=== PATIENT | female | born 1960 | race Caucasian/White ===

== ENCOUNTER → 2018-03-28 | Outpatient (CLI) | payer OTHER ==
[2018-03-28 09:50] LABS: Appearance,Urine Clear (Clear); Bilirubin,Urine Negative (Negative); Blood,Urine Negative (Negative); Color,Urine Yellow; Glucose,Urine (UA) Negative (Negative); Ketones,Urine Negative (Negative); Leukocyte Esterase,Urine Negative (Negative); Nitrite,Urine Negative (Negative); PH, Urine 6.5 (5.0-8.0); Protein,Urine Negative (Negative); Specific Gravity,Urine 1.009 (1.001-1.035); Urobilinogen,Urine <2.0 mg/dL (<2.0)
[2018-03-28 09:57] LABS: HCT 44.8 % (34.0-46.0); HGB 14.5 gm/dL (11.4-16.0); MCH 28.7 pg (25.0-35.0); MCHC 32.4 g/dL (31.0-37.0); MCV 88.6 fL (80.0-100.0); Mean Platelet Volume 6.8; Platelet Count 377 k/uL (150-450); RBC 5.06 m/uL (3.80-5.40); RDW 12.5 % (11.5-15.5); WBC 6.1 k/uL (3.8-10.6)
[2018-03-28 16:59] LABS: ALT 20 U/L (8-44); AST 26 U/L (13-35); Albumin/Globulin Ratio 2.35 (1.20-2.10); Alkaline Phosphatase 78 U/L (41-126); Calcium 10.1 mg/dL (8.7-10.3); Chloride 105 mmol/L (96-109); Cholesterol 225 mg/dL (0-200); Glucose 82 mg/dL (70-110); Potassium 4.6 mmol/L (3.5-5.5); Sodium 141 mmol/L (135-145); Total Bilirubin 0.6 mg/dL (0.3-1.2); Total Protein 6.7 g/dL (6.2-8.2); Triglycerides <50.0 mg/dL (0.0-149.0); VLDL Calculation 9.98 mg/dL (5.00-40.00)
== END | disposition home or self-care (01) ==
LOC: LABWHC1 09:13
PROVIDERS: ATTEND Family Medicine
DX: Z00.00 Encounter for general adult medical examination without abnormal findings (principal); Z13.9 Encounter for screening, unspecified
CPT/HCPCS: 36415; 80053; 80061; 81003; 85027; 86803

== ENCOUNTER → 2018-05-04 | Outpatient (CLI) | payer OTHER ==
--- NOTE | 2018-05-06 11:03 | MM ---
Reason for exam: screening (asymptomatic). Last mammogram was performed 13 years ago. History: Patient history of endometrial cancer. Excisional biopsy of the left breast, 2004. Physical Findings: A clinical breast exam by your physician is recommended on an annual basis and results should be correlated with mammographic findings. MG 3D Screening Mammo W/Cad Bilateral CC and MLO view(s) were taken. Prior study comparison: May 10, 2005, CAD bilateral diagnostic mammogram. April 19, 2004, bilateral diagnostic mammogram. The breast tissue is heterogeneously dense. This may lower the sensitivity of mammography. Diffuse round and punctate calcifications bilaterally. A small group at 12 o'clock on the left. ASSESSMENT: Incomplete: need additional imaging evaluation, BI-RAD 0 RECOMMENDATION: Special view mammogram of the left breast. [facility] will attempt to contact patient to return for supplemental views.
== END ==
LOC: RADMAMWWP 16:24
PROVIDERS: ATTEND Family Medicine
DX: Z12.31 Encounter for screening mammogram for malignant neoplasm of breast (principal)
CPT/HCPCS: 77063; 77067

== ENCOUNTER → 2018-06-03 | Outpatient (CLI) | payer OTHER ==
--- NOTE | 2018-06-05 09:39 | MM ---
Reason for exam: additional evaluation requested from prior study. Last mammogram was performed 1 month ago. History: Patient has history of endometrial cancer at age 26. Excisional biopsy of the left breast, 2004. Physical Findings: Nurse did not find any significant physical abnormalities on exam. MG Work Up Mamm w CAD LT CC with magnification, MLO with magnification, and LM view(s) were taken of the left breast. Prior study comparison: May 04, 2018, bilateral MG 3d screening mammo w/cad. May 10, 2005, CAD bilateral diagnostic mammogram. The breast tissue is extremely dense which could obscure a lesion on mammography. There is a grouped indeterminate fine calcifications in the left breast outer middle position approximately 4 cm from the nipple. A second group is in the anterior left breast. These findings are changed when compared to 2018. These results were verbally communicated with the patient and result sheet given to the patient on 06/03/18. ASSESSMENT: Suspicious, BI-RAD 4 RECOMMENDATION: Surgical consultation. Breast MRI of the left breast. Called Dr. Jeong with mammographic findings and has scheduled an appointment for the patient for 06/19/18 at 3:[address] Jameson for consultation only. PRELIMINARY REPORT CALLED AND FAXED TO DR. JAMESON ON 06/03/18.
== END ==
LOC: RADMAMWWP 14:41
PROVIDERS: ATTEND Family Medicine
DX: R92.8 Other abnormal and inconclusive findings on diagnostic imaging of breast (principal)
CPT/HCPCS: 77065

== ENCOUNTER → 2018-06-19 | Outpatient (CLI) | payer OTHER ==
[2018-06-19 15:12] VITALS: BP 117/62; PULSE 64; RESP 18; TEMP 97.5; BMI 27.6
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
== END ==
LOC: WWCWWP 14:49
PROVIDERS: ATTEND Surgery
DX: Z53.9 Procedure and treatment not carried out, unspecified reason (principal)

== ENCOUNTER → 2018-07-10 | Day surgery (SDC) | payer OTHER ==
[2018-07-10 07:26] VITALS: RESP 16; BMI 27.1
[2018-07-10 09:51] VITALS: BP 132/76; PULSE 71; TEMP 97.6
--- NOTE | 2018-07-10 09:54 | P.OP ---
Date of Procedure: 07/10/18 Preoperative Diagnosis: Mammographic abnormality of 2 sites in the left breast, microcalcifications Postoperative Diagnosis: Same Procedure(s) Performed: Stereotactic core biopsy of 2 sites in the left breast Anesthesia: local Surgeon: Carmen Jameson Estimated Blood Loss (ml): 1 Pathology: other (breast tissue) Condition: stable Disposition: same day Indications for Procedure: Deirdre Swift is a 57-year-old white female who underwent a mammogram after which it was recommended that additional views be obtained of the left breast. This was done [id number]. On this mammogram 2 areas of microcalcification of concern were identified. The first was in the outer mid position 4 cm from the nipple and the second group was in the anterior left breast. The patient had risks and benefits of surgery take a core biopsy discussed with her and she wished to proceed. The patient was taken to the stereotactic core room and positioned on the lower lid table. The more lateral faint group of calcifications were approached initially. The approach was a CC from above. The area of concern was identified in conjunction with radiology although it was very hard to see the microcalcifications. Following the trimmer meat film stereo pair was obtained. The area was targeted. The breast was prepped with Betadine. 10 mL of 1% lidocaine were used to anesthetize the area. The needle was driven to the correct coordinates. Pre-and post-fire films were obtained. This appeared to be in the correct location. Proximally 12 samples were obtained using a 9- gauge vacuum-assisted cutting rotating core biopsy needle. Radiograph of the specimen did not show well the area of calcification. A secure marked top Marker was left. It was discussed with the patient that we were uncertain as to whether we had actually obtain the microcalcifications and it may be necessary to do a needle local excisional biopsy depending on results from pathology. A second area of microcalcifications were more easily targeted. Again a CC from above approach was utilized. The lesion was noted on trimmer meat film. Stereo. Was then obtained. The breast was prepped using Betadine. 15 mL of 1% lidocaine was used to anesthetize the skin and breast tissue. Was driven to the correct coordinates and pre-and post-fire films were obtained. A 9-gauge vacuum-assisted rotating cutting core biopsy needle was utilized to obtain approximately 9 specimens. Radiographic the specimen did reveal the microcalcifications. The patient tolerated the procedure in stable condition. Both specimens were sent for pathologic evaluation. A 6 try marked marker was used to darlene the second area. This was the more medial area. Patient tolerated procedure in stable condition. The more lateral lesion was questionably adequately sampled and depending on pathology it may be recommended she undergo a needle local excisional biopsy. The area could not be better demonstrated on additional radiographic views stereotactically. The more medial area was felt to be adequately sampled and the specimen was sent for pathologic evaluation as well. The patient will follow up next week with Dr. Jesus Posey.
--- NOTE | 2018-07-10 17:57 | MM ---
EXAMINATION TYPE: MG stereo VAD BX addl LT DATE OF EXAM: 07/10/2018 COMPARISON: 06/03/2018 mammogram, 05/04/2018 mammogram CLINICAL HISTORY: Abnormal mammogram, calcifications 2 sites TECHNIQUE: Stereotactic guided core biopsy of left breast. FINDINGS: The procedure was performed by surgery. Targeting was provided by radiology. There is difficulty with the very faint calcifications for the first biopsy site. A valid target appear to be acquired. This was discussed with surgeon. Confirmation with sample and clip placement will be performed. First site: Specimen obtained has no calcifications. Clip placement appears shallow to the calcifications. Post procedure mammogram was discussed with the referring surgeon. Wire localization of these calcifications may be required due to the very faint appearance on the stereotactic imaging. Second site: Second site specimen demonstrates calcifications. Post procedure mammogram: Post procedure mammogram was obtained. The Barbell marker is the shallow marker in the region but not at the calcifications, biopsy site 1. The top hat stock laminating machine operator is at the biopsy site of the calcifications, biopsy site 2. Wire localization from a craniocaudal approach is recommended for site 1 calcifications. IMPRESSION: 1. Unsuccessful stereotactic core biopsy upper outer middle left breast calcifications. 2. Successful stereotactic core biopsy calcifications anterior left breast. Recommendations: 1. Wire localization upper outer quadrant calcifications. 2. Additional recommendations are pending pathology results. Pathology Results: Benign A. LEFT BREAST, SITE A LATERAL, STEREOTACTIC CORE BIOPSY: Benign breast with prominent adipose tissue and fibrocystic changes including fibroadenomatoid hyperplasia, fibrosis and adenosis with rare microcalcifications. See note. B. LEFT BREAST, SITE B ANTERIOR, STEREOTACTIC CORE BIOPSY: Proliferative fibrocystic changes including moderate usual type ductal hyperplasia, sclerosing adenosis with associated calcifications, fibrosis, cysts, columnar cell change and apocrine metaplasia. Recommendation Follow up mammogram of the left breast in 6 months. EMERY
== END ==
LOC: RADMAMWWP 06:59
PROVIDERS: ATTEND Surgery
DX: N60.32 Fibrosclerosis of left breast (principal); N60.22 Fibroadenosis of left breast; N62 Hypertrophy of breast; O28.4 Abnormal radiological finding on antenatal screening of mother; N60.12 Diffuse cystic mastopathy of left breast
CPT/HCPCS: 88305; 19081; 19082; A4648; J2001

== ENCOUNTER → 2018-07-17 | Outpatient (CLI) | payer OTHER ==
[2018-07-17 10:57] VITALS: BP 117/56; PULSE 68; RESP 16; TEMP 96.1; BMI 27.3
--- NOTE | 2018-07-17 11:28 | P.PN ---
Subjective Progress Note Date: 07/17/18 This is a 57-year-old white female who is status post stereotactic core biopsy of 2 areas of concern in the left breast and 220 219. The first area was more lateral and the pathology is benign however there are minimal microcalcifications noted in the specimen. I reviewed this with the radiologist and he is concerned that we have actually adequately sampled the lateral group of microcalcifications. He was therefore recommended a needle localization and excisional biopsy of this area. The more anterior calcifications are felt to be adequately sampled and these also are benign revealing proliferative fibrocystic change including moderate usual type ductal hyperplasia, sclerosing adenosis and associated calcifications. Patient at the time of the stereotactic biopsy procedure did have pain with the second biopsy. The patient does not want to attempt another stereo biopsy. Postprocedure she has some mild ecchymosis and small hematoma formation at the site of the biopsies. The patient is very reluctant to undergo any further procedures at this time and is climbing needle localization and excisional biopsy. Of concern is the fact that the patient had endometrial cancer at the age of 26. Objective - Vital Signs Vital signs: Vital Signs Temp 96.1 F L 07/17/18 10:53 Pulse 68 07/17/18 10:53 Resp 16 07/17/18 10:53 BP 117/56 07/17/18 10:53 Pulse Ox 99 07/17/18 10:53 Intake & Output 07/16/18 07/17/18 07/17/18 18:59 06:59 18:59 Weight 63.503 kg - Exam BMI 27.3 - Constitutional General appearance: Present: average body habitus - EENT Eyes: Present: EOMI ENT: Present: hearing grossly normal - Neck Neck: Present: normal ROM - Respiratory Respiratory: bilateral: CTA - Cardiovascular Rhythm: regular Heart sounds: normal: S1, S2 - Musculoskeletal Musculoskeletal: Present: gait normal, generalized weakness - Psychiatric Psychiatric: Present: A&O x's 3, appropriate affect, intact judgment & insight - Additional findings Additional findings: Breast examination: Left breast mild ecchymosis with small hematoma at the core biopsy site no evidence of any infection Assessment and Plan Assessment: Impression: 1. Patient comes in status post stereotactic core biopsy the lateral biopsy site is felt to be in adequate sampling of the area of concern 2. Both biopsy sites were benign 3. Right knee pain 4. Migraine headaches 5. Endometrial cancer at 26 Plan: 1. Recommendation is for needle localization and excisional biopsy of lateral hypocalcification site 2. Medical management of medical conditions 3. At this time the patient is declining any further interventional biopsy. She has agreed to a repeat left breast mammogram in 3 months time with physician exam at that time. She and her understand that this could represent a malignancy and bleeding could be dangerous to her health. Despite this she is declining any further biopsy rather stereotactic or open. We will therefore do a left breast mammogram and physician appointment in 3 months time. cc: Dr. Jeong
== END ==
LOC: WWCWWP 10:39
PROVIDERS: ATTEND Surgery
DX: Z53.9 Procedure and treatment not carried out, unspecified reason (principal)

== ENCOUNTER → 2018-11-02 | Outpatient (CLI) | payer OTHER ==
--- NOTE | 2018-11-03 08:34 | MM ---
Reason for exam: follow-up at short interval from prior study. Last mammogram was performed 5 months ago. History: Patient is postmenopausal and has history of endometrial cancer at age 26. Benign MG stereo VAD BX addl LT of the left breast, July 10, 2018. Benign MG stereo VAD BX LT of the left breast, July 10, 2018. Excisional biopsy of the left breast, 2005. Physical Findings: Nurse did not find any significant physical abnormalities on exam. MG Diagnostic Mammo LT w CAD CC, MLO, and XCCL view(s) were taken of the left breast. Prior study comparison: June 03, 2018, left breast MG work up mamm w CAD LT. May 04, 2018, bilateral MG 3d screening mammo w/cad. The breast tissue is heterogeneously dense. This may lower the sensitivity of mammography. Previous mammotome biopsy in the left breast x 2. Benign oil cysts. Asymmetric density associated with the lateral superior clip becomes less defined on conventional CC view. 6 month precautionary follow up recommended. These results were verbally communicated with the patient and result sheet given to the patient on 11/02/18. ASSESSMENT: Probably benign, BI-RAD 3 RECOMMENDATION: Follow-up diagnostic mammogram of both breasts in 6 months.
== END | disposition home or self-care (01) ==
LOC: RADMAMWWP 15:36
PROVIDERS: ATTEND Surgery
DX: R92.8 Other abnormal and inconclusive findings on diagnostic imaging of breast (principal)
CPT/HCPCS: 77065

== ENCOUNTER → 2020-07-11 | Outpatient (CLI) | payer OTHER ==
--- NOTE | 2020-07-13 14:22 | MM ---
Reason for exam: screening (asymptomatic). Last mammogram was performed 1 year and 8 months ago. History: Patient is postmenopausal and has history of endometrial cancer at age 26. Benign MG stereo VAD BX addl LT of the left breast, July 10, 2018. Benign MG stereo VAD BX LT of the left breast, July 10, 2018. Excisional biopsy of the left breast, 2005. Physical Findings: A clinical breast exam by your physician is recommended on an annual basis and results should be correlated with mammographic findings. MG 3D Screening Mammo W/Cad Bilateral CC and MLO view(s) were taken. Prior study comparison: November 02, 2018, left breast MG diagnostic mammo LT w CAD. June 03, 2018, left breast MG work up mamm w CAD LT. The breast tissue is heterogeneously dense. This may lower the sensitivity of mammography. Previous mammotome biopsy in the left breast. Stable scattered punctate and oil cyst calcifications. No significant changes when compared with prior studies. ASSESSMENT: Benign, BI-RAD 2 RECOMMENDATION: Routine screening mammogram of both breasts in 1 year.
== END | disposition home or self-care (01) ==
LOC: RADMAMWWP 16:21
PROVIDERS: ATTEND Family Medicine
DX: Z12.31 Encounter for screening mammogram for malignant neoplasm of breast (principal)
CPT/HCPCS: 77063; 77067

== ENCOUNTER → 2021-07-24 | Outpatient (CLI) | payer OTHER ==
--- NOTE | 2021-07-25 12:34 | MM ---
Reason for exam: screening (asymptomatic). Last mammogram was performed 1 year ago. History: Patient is postmenopausal and has history of endometrial cancer at age 26. Benign MG stereo VAD BX addl LT of the left breast, July 10, 2018. Benign MG stereo VAD BX LT of the left breast, July 10, 2018. Excisional biopsy of the left breast, 2005. Physical Findings: A clinical breast exam by your physician is recommended on an annual basis and results should be correlated with mammographic findings. MG Screening Mammo w CAD Bilateral CC and MLO view(s) were taken. Prior study comparison: July 11, 2020, bilateral MG 3d screening mammo w/cad. November 02, 2018, left breast MG diagnostic mammo LT w CAD. The breast tissue is heterogeneously dense. This may lower the sensitivity of mammography. Previous mammotome biopsy in the left breast x 2. Small benign oil cyst calcifications bilaterally. No significant changes when compared with prior studies. ASSESSMENT: Benign, BI-RAD 2 RECOMMENDATION: Routine screening mammogram of both breasts in 1 year. Patient should continue monthly self breast exams. A negative report should not preclude additional follow up of suspicious palpable abnormalities.
== END | disposition home or self-care (01) ==
LOC: RADMAMWWP 07:05
PROVIDERS: ATTEND Family Medicine
DX: Z12.31 Encounter for screening mammogram for malignant neoplasm of breast (principal); Z78.0 Asymptomatic menopausal state
CPT/HCPCS: 77067

== ENCOUNTER → 2024-06-05 | Outpatient (CLI) | payer OTHER ==
[2024-06-05 13:02] LABS: ALT 16 U/L (8-44); AST 17 U/L (13-35); Albumin 4.5 g/dL (3.8-4.9); Albumin/Globulin Ratio 2.05 Ratio (1.60-3.17); Alkaline Phosphatase 101 U/L (41-126); BUN/Creat Ratio 23.75 Ratio (12.00-20.00); Calcium 9.5 mg/dL (8.7-10.3); Carbon Dioxide 27.3 mmol/L (21.6-31.8); Chloride 104 mmol/L (96-109); Chol/HDL Ratio 4.05 Ratio; Globulin 2.2 g/dL (1.6-3.3); Glucose 95 mg/dL (70-110); LDL Cholesterol,Calculated 175.7 mg/dL (0.0-131.0); Potassium 4.4 mmol/L (3.5-5.5); Sodium 139 mmol/L (135-145); Total Bilirubin 0.3 mg/dL (0.3-1.2); Total Protein 6.7 g/dL (6.2-8.2); VLDL Calculation 11.84 mg/dL (5.00-40.00)
[2024-06-05 13:08] LABS: HCT 44.7 % (37.2-46.3); HGB 14.4 g/dL (12.0-15.0); MCH 28.3 pg (27.0-32.0); MCHC 32.2 g/dL (32.0-37.0); Mean Platelet Volume 10.1 FL (9.5-12.2); NRBC Per 100 WBC 0 X 10*3/uL (0.00-0.01); Platelet Count 375 X 10*3/uL (140-440); RBC 5.08 X 10*6/uL (4.10-5.20); WBC 6.37 X 10*3/uL (4.50-10.00)
== END | disposition home or self-care (01) ==
LOC: LABWHC1 08:24
PROVIDERS: ATTEND Family Medicine
DX: Z00.00 Encounter for general adult medical examination without abnormal findings (principal)
CPT/HCPCS: 36415; 80053; 80061; 85027

== ENCOUNTER → 2024-07-26 | Outpatient (CLI) | payer OTHER ==
--- NOTE | 2024-07-26 07:58 | MM ---
Reason for Exam: Screening (asymptomatic). Last mammogram was performed 2 year(s) and 0 month(s) ago. Patient History: Menarche at age 18. First Full-Term at age 24. Hysterectomy at age 29. Postmenopausal. Patient has history of breast feeding. Endometrial cancer, age 26. 2005, Excisional Biopsy on the Left side. 07/10/2018, Benign Core Biopsy on the left side. 07/10/2018, Benign Core Biopsy on the left side. Risk Values: Heather 5 year model risk: 1.8%. NCI Lifetime model risk: 8.7%. Prior Study Comparison: 07/11/2020 Bilateral Screening Mammogram, [facility]. 07/24/2021 Bilateral Screening Mammogram, [facility]. 07/25/2022 Bilateral MG screening mammo w CAD, [facility]. Tissue Density: The breasts are heterogeneously dense, which may obscure small masses. Findings: Analyzed By CAD. There is no suspicious group of microcalcifications or new suspicious mass in either breast. Previously sampled nodule left breast unchanged. Overall Assessment: Benign, BI-RAD 2 Management: Screening Mammogram of both breasts in 1 year. . Patient should continue monthly self-breast exams. A clinical breast exam by your physician is recommended on an annual basis. This exam should not preclude additional follow-up of suspicious palpable abnormalities. Note on Heather scores and lifetime risk: 1. A Heather score greater than 3% is considered moderate risk. If this is the case, consider specialist referral to assess eligibility for a risk reducing agent. 2. If overall lifetime risk for the development of breast cancer is 20% or higher, the patient may qualify for future screening with alternating mammogram and breast MRI. [facility], , 07/26/2024 7:55 AM. Electronically signed and approved by: Jun George M.D. Radiologis
== END | disposition home or self-care (01) ==
LOC: RADMAMWWP 06:57
PROVIDERS: ATTEND Family Medicine
DX: Z12.31 Encounter for screening mammogram for malignant neoplasm of breast (principal); R92.333 Mammographic heterogeneous density, bilateral breasts; Z78.0 Asymptomatic menopausal state
CPT/HCPCS: 77067

== ENCOUNTER 2024-08-17 08:54 | Day surgery (SDC) | payer OTHER ==
[~2024-08-17 08:54] MED LIST: LIDOCAINE 1% (10MG/ML) FOR IV START INTRADERMA PRN
[2024-08-17] MEDS: IV FLUID CONTINUATION 1,000 ML IV ONE (09:13)
[2024-08-17 09:26] VITALS: TEMP 97.7
[2024-08-17] MEDS: LACTATED RINGERS 1,000 ML IV SCH (09:27)
[2024-08-17] MEDS ORDERED: LIDOCAINE 1% INJ 10MG/ML (20 ML MDV) ONE (10:19)
[2024-08-17] MEDS ORDERED: PROPOFOL 10 MG/ML 20 ML VIAL IV ONE (10:19)
--- NOTE | 2024-08-17 10:39 | P.PCN ---
Date of Procedure: 08/17/24 Procedure(s) Performed: BRIEF HISTORY: Patient is a 63-year-old pleasant white female scheduled for an elective colonoscopy as a part of screening for colon cancer. PROCEDURE PERFORMED: Colonoscopy. PREOPERATIVE DIAGNOSIS: Screening for colon cancer. IV sedation per Anesthesia. PROCEDURE: After informed consent was obtained, the patient, was brought into the endoscopy unit. IV sedation was administered by Anesthesia under continuous monitoring. Digital rectal examination was normal. Initially the Olympus CF-160 flexible video colonoscope was then inserted in the rectum, gradually advanced into the cecum without any difficulty. Careful examination was performed as the scope was gradually being withdrawn. Ileocecal valve and the appendiceal orifice were visualized and appeared normal. Prep was excellent. Mucosa of the cecum, ascending colon, transverse colon, descending colon, sigmoid colon, and rectum appeared normal. Retroflexion was performed in the rectum and small internal hemorrhoids were seen. The patient tolerated the procedure well. IMPRESSION: Normal-appearing colon from rectum to cecum with no evidence of colorectal neoplasia. Small internal hemorrhoids. RECOMMENDATIONS: Findings of this examination were discussed with the patient as well as the family.. She was advised to have repeat screening colonoscopy in 10 years.
[2024-08-17 11:08] VITALS: BP 111/69; PULSE 67; RESP 18
== END 2024-08-17 11:20 | disposition home or self-care (01) ==
LOC: ORWHC2ENDO 08:54
PROVIDERS: ATTEND Internal Medicine Gastroenterology
DX: Z12.11 Encounter for screening for malignant neoplasm of colon (principal); K64.8 Other hemorrhoids; Z87.891 Personal history of nicotine dependence
CPT/HCPCS: 45378; J2003; J2704